=== PATIENT | male | born 1985 | race Hispanic/Latino ===

== ENCOUNTER 2018-04-24 00:19 | Observation (INO) | payer OTHER, SELFPAY ==
[2018-04-24 01:54] LABS: Amphetamine Not Detected (NotDetected); Barbiturates Screen Not Detected (NotDetected); Benzodiazepine Screen Not Detected (NotDetected); Cocaine Metabolite Screen Not Detected (NotDetected); Medtox Control Line Valid? VALID (VALID); Medtox Reader # READER 4; Methadone Not Detected (NotDetected); Methamphetamine Not Detected (NotDetected); Opiate Screen Not Detected (NotDetected); Oxycodone Screen Not Detected (NotDetected); Phencyclidine (PCP) Not Detected (NotDetected); THC/Cannabinoid Screen Not Detected (NotDetected); Tricyclic Screen Not Detected (NotDetected)
[2018-04-24] MEDS ORDERED: Labetalol HCl 100 MG/20 ML VIAL SLOW IVP PRN (02:28)
[2018-04-24] MEDS ORDERED: Morphine 4 MG/ML VIAL SLOW IVP PRN (02:29)
[2018-04-24 02:43] VITALS: BMI 33.2
[2018-04-24 05:12] LABS: Troponin I 0.023 ng/mL (< 0.028)
[2018-04-24] MEDS ORDERED: Nitroglycerin 0.4 MG TAB (25 Tab Bottle) SL PRN (07:11)
[2018-04-24] MEDS ORDERED: Loperamide HCl 2 MG CAP PO PRN (07:11)
[2018-04-24] MEDS ORDERED: Cepastat Lozenges 1 LOZ PO PRN (07:11)
[2018-04-24] MEDS ORDERED: Ondansetron PF 4 MG/2 ML Vial IVP PRN (07:11)
[2018-04-24] MEDS ORDERED: Senokot S 8.6-50 MG TAB PO PRN (07:11)
[2018-04-24] MEDS ORDERED: HYDROcodone/Acetaminophen 5/325 mg Tablet PO PRN (07:11)
[2018-04-24] MEDS ORDERED: Bisacodyl 10 MG SUPP PR PRN (07:11)
[2018-04-24] MEDS ORDERED: Artificial Tears 18 DROP/0.9 ML EA EYE PRN (07:11)
[2018-04-24] MEDS ORDERED: Sodium Chloride 0.65% Nasal 44 ML BOT EA NARE PRN (07:11)
[2018-04-24] MEDS ORDERED: hydrALAZINE 20 MG/ML VIAL SLOW IVP PRN (07:11)
[2018-04-24] MEDS ORDERED: Calcium Carbonate 500 MG ChewTAB PO PRN (07:11)
[2018-04-24] MEDS ORDERED: Loratadine 10 MG TAB PO PRN (07:11)
[2018-04-24] MEDS ORDERED: Zolpidem Tartrate 5 MG TAB PO PRN (07:11)
[2018-04-24] MEDS ORDERED: Acetaminophen 325 MG TAB PO PRN (07:11)
[2018-04-24] MEDS ORDERED: Ondansetron ODT 4 MG TAB PO PRN (07:11)
[2018-04-24] MEDS ORDERED: Eucerin (Mineral Oil/Petrolatum,White) 30 gm Jar TOP PRN (07:11)
[2018-04-24] MEDS ORDERED: Diabetic Tussin 200 MG/10 ML UDCUP PO PRN (07:11)
[2018-04-24 07:41] LABS: #Eosinphils 0.1 thou/uL (0.0-0.7); #Lymphocytes 1.9 thou/uL (1.20-3.40); #Monocytes 0.5 thou/uL (0.11-0.59); #Neutrophils 4.5 thou/uL (1.40-6.50); %Basophils 0.3 % (0.0-1.0); %Eosinophils 0.8 % (0.0-10.0); %Monocytes 7.2 % (0.0-10.0); %Neutrophils 64.7 % (42.0-75.0); Hemoglobin 13.9 g/dL (14.0-18.0); Mean Corpuscular HGB CONC 34.5 g/dL (32.0-36.0); Mean Corpuscular Hemoglobin 29.7 pg (27.0-31.0); Mean Corpuscular Volume 86.2 fL (78.0-98.0); Mean Platelet Volume 7.5 fL (7.4-10.4); Platelet Count 216 thou/uL (130-400); RBC Distribution Width 11.8 % (11.5-14.5); Red Blood Cell (RBC) Count 4.67 mill/uL (4.70-6.10)
[2018-04-24 07:57] LABS: Troponin I 0.024 ng/mL (< 0.028)
[2018-04-24 08:05] LABS: ALT (SGPT) 71 U/L (8-55); AST (SGOT) 34 U/L (5-34); Alkaline Phosphatase 79 U/L (40-150); Anion Gap 11 mmol/L (10-20); BUN (Urea Nitrogen) 14 mg/dL (8.9-20.6); Bilirubin, Total 0.7 mg/dL (0.2-1.2); Calc. Creatinine Clearance 121 mL/min (70-130); Calcium 8.6 mg/dL (7.8-10.44); Carbon Dioxide 22 mmol/L (22-29); Cardiac Risk 4.7 (Less than 4.5); Chloride 109 mmol/L (98-107); Cholesterol 154 mg/dl (< 200 Desired); Estimated GFR-MDRD 76; Globulin 3.1 g/dL (2.4-3.5); Glucose 95 mg/dL (70-105); HDL Cholesterol 33 mg/dL (>60 Neg Risk); LDL Cholesterol, Calculated 107 mg/dL; Potassium 4.2 mmol/L (3.5-5.1); Protein, Total 7.1 g/dL (6.0-8.3); Sodium 138 mmol/L (136-145); Triglycerides 69 mg/dL (Less than 150)
[2018-04-24] MEDS ORDERED: Non-Formulary Item 1 EACH (Losartan Potassium [Cozaar] 100 MG) PO SCH (09:00)
[2018-04-24] MEDS ORDERED: Amlodipine 5 MG TAB PO SCH (09:00)
[2018-04-24] MEDS ORDERED: Famotidine 20 MG TAB PO SCH (09:00)
[2018-04-24] MEDS ORDERED: Losartan 25 MG TAB PO SCH (09:00)
[2018-04-24] MEDS ORDERED: Aspirin 325 MG TAB PO SCH (09:00)
[2018-04-24 10:33] VITALS: BP 144/81; TEMP 98.3
--- NOTE | 2018-04-24 11:58 | NM ---
NUCLEAR MEDICINE CARDIAC STRESS TEST WITH EJECTION FRACTION: HISTORY: Chest pain. Hypertension. COMPARISON: None. FINDINGS: No scar or ischemia. Normal wall motion. Calculated ejection fraction is 65%. The exam was performed using nuclear treadmill stress test, which was negative. Intravenous technetiu m-99m sestamibi, 33 mCi and 11 mCi, were administered for stress and rest, respectively. IMPRESSION: Normal exam. POS: [facility]
--- NOTE | 2018-04-24 12:32 | SS ---
DATE OF ADMISSION: 04/24/2018 DATE OF DISCHARGE: 04/24/2018 PRIMARY CARE PHYSICIAN: [facility] Call Admission. REASON FOR ADMISSION: Transfer from [facility] for acute chest pain and hypertensive urgency. HISTORY OF PRESENT ILLNESS: A 33-year-old male, who has a recent diagnosis of hypertension for last 4 months and he is taking amlodipine and losartan. Since Sunday, the patient's blood pressure is remaining high. He went to local emergency room on Sunday and he was checked out from emergency room. Again, last night he went to [facility] for chest pain and dizziness. He was feeling left-sided vague discomfort with radiation to left arm. He was feeling pressure sensation. He denies any associated nausea, vomiting, or diaphoresis. He denies any lower extremity weakness, but he was feeling tingling sensation in left upper extremity. His blood pressure was also very high. When he was evaluated at [facility], his blood pressure was 175/105 and he was tachycardic. His D-dimer was negative. His chest pain was subsided in the emergency room after treatment. His D-dimer was negative. Initially, his troponin negative and subsequently 3 troponin remained negative. Initially, he had elevated creatinine, but subsequently that was also improved. The patient underwent exercise Cardiolite stress test, that came back normal. His chest x-ray was unremarkable. His EKG was showing LVH without any ischemic changes. After admission to our hospital, he was completely asymptomatic. His telemetry remained unremarkable. He is feeling normal. He does not have any headache, focal motor or sensory symptoms. He denies any chest pain, fever, chills, cough, or UTI symptoms. He denies any constipation, diarrhea, melena, or hematochezia. REVIEW OF SYSTEMS: CONSTITUTIONAL: Negative for weight loss or gain, ability to conduct usual activities. SKIN: Negative for rash, itching. EYES: Negative for double vision, pain. ENT/MOUTH: Negative for nose bleeding, neck stiffness, pain, tenderness. CARDIOVASCULAR: Negative for palpitations, dyspnea on exertion, orthopnea. RESPIRATORY: Negative for shortness of breath, wheezing, cough, hemoptysis, fever or night sweats. GASTROINTESTINAL: Negative for poor appetite, abdominal pain, heartburn, nausea, vomiting, constipation, or diarrhea. GENITOURINARY: Negative for urgency, frequency, dysuria, nocturia. MUSCULOSKELETAL: Negative for pain, swelling. NEUROLOGIC/PSYCHIATRIC: Negative for anxiety, depression. ALLERGY/IMMUNOLOGIC: Negative for skin rash, bleeding tendency. Please see my HPI for pertinent positives and negatives. All other review of systems reviewed and negative except as mentioned in HPI. ALLERGIES: NO KNOWN DRUG ALLERGIES. CURRENT HOME MEDICATIONS: Amlodipine 5 mg p.o. daily and losartan 100 mg daily. PAST MEDICAL HISTORY: Hypertension. PAST SURGICAL HISTORY: Reviewed and negative. PAST PSYCHIATRIC HISTORY: Reviewed and negative. SOCIAL HISTORY: The patient drinks alcohol on weekend. He denies any smoking. He denies any other illicit drug abuse. FAMILY HISTORY: Hypertension among several family members. EMERGENCY ROOM COURSE: At [facility], the patient was given IV fluid and clonidine 0.1 mg, and aspirin. PHYSICAL EXAMINATION: VITAL SIGNS: Currently, temperature 98.8, pulse 75, respiratory rate 17, saturation 99% on room air, and blood pressure 122/73. Weight 199 pounds. GENERAL: The patient is currently alert and awake. No obvious acute distress. HEENT: Head; normocephalic and atraumatic. Eyes; pupils are round and reactive to light. Extraocular muscle intact. ENT; oropharynx within normal limits. Moist mucous membranes. No oral lesion. No pharyngeal erythema. No exudate. NECK: Supple. No JVD. No thyromegaly. No carotid bruit. No jugular venous distention. LUNGS: Clear to auscultation without any rhonchi or rales. CARDIAC: S1 and S2 regular. No murmur. No gallop. No rub. ABDOMEN: Obesity present. Bowel sounds present. Nontender. Nondistended. No organomegaly. No mass. No suprapubic tenderness. BACK: Unremarkable. No CVA tenderness. EXTREMITIES: Upper extremities; passive movement of all joints are normal. Lower extremity, no edema. Good distal pulsation. SKIN: No skin rash. HEMATOLOGICAL SYSTEM: No lymphadenopathy. NEUROLOGIC: Nonfocal examination. SIGNIFICANT LABORATORY DATA: EKG showing LVH and nonspecific ST-T changes. Chest x-ray based on my review, no acute cardiopulmonary process. CBC; WBC 7.0, hemoglobin 13.9, and platelet 216. Sodium 138, potassium 4.2, chloride 109, carbon dioxide 22, BUN 14, creatinine 1.11, and calcium 8.6. LFT; AST 34, ALT 71, alkaline phosphatase 79, and albumin 4.0. Triglycerides 69, cholesterol 154, LDL 107, and HDL 33. Cardiac enzymes negative x3. Initial troponin was indeterminate range. Urine drug screen negative. ASSESSMENT AND PLAN: 1. Acute chest pain, most likely related with uncontrolled hypertension. Initial troponin was slightly indeterminate range, was related with demand ischemia and subsequent 3 cardiac enzyme negative. The patient's D-dimer is also negative and his EKG showing LVH without any ischemic changes. He had a negative stress test. We have completely excluded cardiopulmonary etiology. I have advised him to reduce his weight and healthy lifestyle measure was addressed. Currently, his blood pressure is well controlled with his own home medication, which he will continue and follow up with his primary care physician. 2. Hypertensive urgency, currently resolved. I advised him to monitor his blood pressure periodically and follow up with his primary care physician for further adjustment of therapy. I advised him to take extra amlodipine if blood pressure remains high at home. 3. Obesity with BMI 33. Dietary education given. Weight loss education given. Healthy lifestyle measure discussed with the patient. 4. Deep venous thrombosis prophylaxis, not needed, because we are expecting discharge today. 5. Gastrointestinal prophylaxis, Pepcid 20 mg p.o. b.i.d. as needed. CODE STATUS: The patient is full code. The patient is making his decision by himself. DISPOSITION PLAN: Later on today. PRIMARY DISCHARGE DIAGNOSES: 1. Chest pain ruled out acute coronary syndrome. 2. Mild demand ischemia due to hypertension. 3. Hypertensive urgency. SECONDARY DISCHARGE DIAGNOSES: 1. Hypertension. 2. Obesity. PRIMARY PROCEDURE/OPERATION: None. RADIOLOGICAL INVESTIGATION: Chest x-ray normal. Stress test negative. Significant labs normal. DISCHARGE MEDICATIONS: Amlodipine 5 mg p.o. daily and losartan 100 mg p.o. daily. CONTRAINDICATION: None. CODE STATUS: Full code. INPATIENT PEDIATRIC NEUROPSYCHOLOGIST: None. DISCHARGE PLAN: Posthospital, the patient will follow up with primary care physician in 1 week. HOSPITAL COURSE: Please see my HPI for further details. The patient had a chest pain and his chest pain description was atypical, most likely related with uncontrolled hypertension that was resolved. We did stress test, which was normal. All blood test is also unremarkable and he is asymptomatic. Telemetry unremarkable. The patient is stable for discharge today. The patient was admitted and discharged on the same day. Job ID: [id number]
--- NOTE | 2018-04-27 17:01 | EKG ---
Test Reason : Blood Pressure : / mmHG Vent. Rate : 089 BPM Atrial Rate : 089 BPM P-R Int : 148 ms QRS Dur : 084 ms QT Int : 348 ms P-R-T Axes : 023 026 -17 degrees QTc Int : 423 ms Normal sinus rhythm Nonspecific T wave abnormality Abnormal ECG Improved ST changes from #1 Confirmed by ROSS BALDERAS ([id number]), web content editor IJEOMA MCKENNA ([id number] on 04/27/2018 5:00:40 PM Referred By: Confirmed By:ROSS BALDERAS
== END 2018-04-24 13:16 | disposition home or self-care (01) ==
LOC: ERS 00:19 → 2SW 01:09
PROVIDERS: ADMIT Internal Medicine; ATTEND Internal Medicine
DX: R07.89 Other chest pain (principal); I16.0 Hypertensive urgency; I10 Essential (primary) hypertension; I24.8 Other forms of acute ischemic heart disease; E66.9 Obesity, unspecified; Z68.33 Body mass index [BMI] 33.0-33.9, adult; Z79.899 Other long term (current) drug therapy
CPT/HCPCS: 36415; 78452; 80053; 80061; 80306; 84484; 85025; 93005; 93017; A9500; G0378

== ENCOUNTER 2019-01-30 12:47 | Outpatient (CLI) | payer BC ==
--- NOTE | 2019-01-30 14:05 | RAD ---
TWO VIEW CHEST: INDICATIONS: Fever. FINDINGS: Lungs are clear. Heart and mediastinum are unremarkable. Osseous structures are unremarkable. IMPRESSION: No acute findings. POS: [facility]
== END 2019-01-30 12:48 | disposition home or self-care (01) ==
LOC: BICRAD 12:47
PROVIDERS: ATTEND Family Medicine
DX: R50.9 Fever, unspecified (principal)
CPT/HCPCS: 71046